=== PATIENT | female | born 1955 | race African-American/Black ===

== ENCOUNTER → 2017-06-26 | Day surgery (SDC) | payer MEDICARE ==
[2017-06-20 16:07] LABS: BASOPHILS % 0.4 % (0.0-1.0); EOSINOPHILS # (AUTO) 0.1 (0.0-0.4); EOSINOPHILS % 1.1 % (0.0-6.0); HEMATOCRIT 37.3 % (34.2-44.1); HEMOGLOBIN 11.6 g/dL (12.0-16.0); LYMPHOCYTES # (AUTO) 2.6 (1.0-3.2); LYMPHOCYTES % 37.3 % (18.0-39.1); MEAN CORPUSCULAR HEMOGLOBIN 23.6 pg (28-32); MEAN CORPUSCULAR HGB CONC 31.1 g/dL (31-35); MEAN CORPUSCULAR VOLUME 75.8 fL (81-99); MONOCYTES # (AUTO) 0.5 (0.2-0.8); NEUTROPHILS # (AUTO) 3.8 (2.1-6.9); NEUTROPHILS % 53.9 % (38.7-80.0); PLATELET COUNT 257 x10e3/uL (140-360); RED BLOOD COUNT 4.92 x10e6/uL (3.6-5.1); RED CELL DISTRIBUTION WIDTH 15.6 % (11.7-14.4)
[~2017-06-26] MED LIST: ACETAMINOPHEN 1000 MG/100 ML IV ONE; ACETAMINOPHEN/CODEINE 300MG - 30MG TAB ONE; CEFAZOLIN SOD 1 GM VIAL ONE; FENTANYL CITRATE/PF 100MCG/2 ML INJ ONE; GLIMEPIRIDE2 MG PO; HYDROCHLOROTHIA25 MG PO; INSULIN SQ; ISOSORBIDE MONO30 MG PO; LIDOCAINE HCL 2% LOCAL INJ 5 ML SDV VIAL INJ ONE; METOPROLOL SUCC50 MG PO; MIDAZOLAM HCL 2 MG/2 ML VIAL ONE; NIFEDIPINE ER30 M1 PO; ONDANSETRON HCL INJ 2 MG/ML VIAL ONE; PANTOPRAZOLE SO40 MG PO; PROPOFOL IV EMULSION 10 MG/ML 50 ML VIAL ONE; SEVOFLURANE INHAL SOLN 250 ML PEN BTL ONE
--- OUTSIDE RECORDS SUMMARY | 2017-06-26 06:02 | XMS REPORT ---
[facility] Phone Unavailable Care Team Providers Care Baby Attendant Name Role Phone Unavailable Unavailable Problems This patient has no known problems. Allergies, Adverse Reactions, Alerts This patient has no known allergies or adverse reactions. Medications This patient has no known medications. Encounters Start Date/Time End Date/Time Encounter Type Admission Type Attending [facility] Care Department Encounter ID 2017-03-12 00:00:00 2017-03-12 00:00:00 Outpatient [facility] [id number] 2017-01-30 00:00:00 2017-01-30 00:00:00 Outpatient [facility] [id number] 2017-01-09 00:00:00 2017-01-09 00:00:00 Outpatient [facility] [id number] 2017-01-02 13:02:36 2017-01-02 13:02:36 Outpatient [facility] [id number] 2016-12-22 00:00:00 2016-12-22 00:00:00 Outpatient [facility] [id number] 2016-12-21 09:48:44 2016-12-21 09:48:44 Outpatient [facility] [id number] 2016-12-07 00:00:00 2016-12-07 00:00:00 Outpatient [facility] [id number] 2016-11-29 14:11:11 2016-11-29 14:11:11 Outpatient [facility] [id number] 2016-11-24 00:00:00 2016-11-24 00:00:00 Outpatient [facility] [id number] 2016-11-21 12:48:50 2016-11-21 12:48:50 Outpatient [facility] [id number] 2016-11-20 11:26:34 2016-11-20 11:26:34 Outpatient [facility] [id number] 2016-11-20 10:50:19 2016-11-20 10:50:19 Outpatient [facility] [id number] 2016-11-20 00:00:00 2016-11-20 00:00:00 Outpatient [facility] [id number] 2016-11-16 10:48:30 2016-11-16 10:48:30 Outpatient [facility] [id number] 2016-11-07 08:04:55 2016-11-07 08:04:55 Outpatient [facility] [id number] 2016-11-06 08:00:00 2016-11-06 08:00:00 Outpatient [facility] [id number] 2016-11-06 00:00:00 2016-11-06 00:00:00 Outpatient [facility] [id number] 2016-11-06 00:00:00 2016-11-06 00:00:00 Outpatient [facility] [id number] 2016-11-03 00:00:00 2016-11-03 00:00:00 Outpatient [facility] [id number] 2016-10-27 12:57:26 2016-10-27 12:57:26 Outpatient [facility] [id number] 2016-10-23 14:45:54 2016-10-23 14:45:54 Outpatient [facility] [id number] 2016-10-17 00:00:00 2016-10-17 00:00:00 Outpatient [facility] [id number] 2016-10-05 11:02:14 2016-10-05 11:02:14 Outpatient [facility] [id number] 2016-09-26 08:03:38 2016-09-26 08:03:38 Outpatient [facility] [id number] 2016-09-25 06:24:00 2016-09-25 06:24:00 Outpatient [facility] [id number] 2016-09-23 00:00:00 2016-09-23 00:00:00 Outpatient [facility] [id number] 2016-09-21 09:27:17 2016-09-21 09:27:17 Outpatient [facility] [id number] 2016-09-21 08:59:07 2016-09-21 08:59:07 Outpatient [facility] [id number] 2016-09-21 08:03:42 2016-09-21 08:03:42 Outpatient [facility] [id number] 2016-09-20 10:48:04 2016-09-20 10:48:04 Outpatient [facility] [id number] 2016-08-25 15:35:03 2016-08-25 15:35:03 Outpatient [facility] [id number]
--- NOTE | 2017-06-26 09:24 | Operative Report ---
DATE OF PROCEDURE: June 26, 2017 [employer] COM[employer]ITE TECHNICIAN: Edwar Flower PA-C The patient was brought to the operating room for induction of anesthesia. Throughout this case, my PA's assistance was necessary for retraction of soft tissue and positioning of the extremity. This allows for efficient and technically successful execution of the operation and is considered medically necessary. PREOPERATIVE DIAGNOSIS: Right carpal tunnel syndrome. POSTOPERATIVE DIAGNOSIS: Right carpal tunnel syndrome. PROCEDURE: Right endoscopic carpal tunnel release. INDICATIONS: The patient is a 62-year-old lady who has clinic signs and symptoms consistent with right carpal tunnel syndrome. She has failed conservative management and would like to proceed with definitive intervention. The risks and benefits of an endoscopic versus open carpal tunnel release have been explained. She states she understands and wishes to proceed. PROCEDURE: The patient was brought to the operating room. She was placed under general anesthetic. Prophylactic antibiotics were given in the holding area. The right upper extremity was prepped and draped in a sterile manner. A well-padded tourniquet was placed on the upper arm and inflated to 250 mmHg. An operative time out was performed. A 1-cm incision was made over the flexion crease of the wrist. The palmaris longus was retracted to the radial side of the wound. The flexor retinaculum was elevated and incised with a pair of sharp tenotomy scissors. An elevator was used to tease the tenosynovium off the undersurface of the transverse carpal ligament. Dilators were placed, and the hook of the hamate was palpated. The [employer] endoscope was then placed into the carpal tunnel. The undersurface of the ligament was cleanly visualized without evidence of soft tissue interposition. The knife was deployed, and the ligament was cut from distal to proximal. Full-thickness cut was noted. The proximal retinaculum was then incised under direct visualization using a pair of blunt Metzenbaum scissors. The wound was irrigated and closed with 2 interrupted 4-0 nylon stitches. A sterile bandage was applied, and the patient was extubated. The patient was transferred to the recovery room in stable condition. Blood loss was less than 5 mL, and at the end of the procedure needle and sponge counts were correct. Job#: [id number]
== END | disposition home or self-care (01) ==
LOC: OR 05:59
PROVIDERS: ATTEND Specialist
DX: G56.01 Carpal tunnel syndrome, right upper limb (principal); E11.9 Type 2 diabetes mellitus without complications; I10 Essential (primary) hypertension; E66.01 Morbid (severe) obesity due to excess calories; K21.9 Gastro-esophageal reflux disease without esophagitis; Z01.810 Encounter for preprocedural cardiovascular examination; Z01.812 Encounter for preprocedural laboratory examination; Z79.82 Long term (current) use of aspirin; Z79.4 Long term (current) use of insulin; Z68.41 Body mass index [BMI] 40.0-44.9, adult; Z86.73 Personal history of transient ischemic attack (TIA), and cerebral infarction without residual deficits
CPT/HCPCS: 29848; 36415 ×2; 82948; 85025; 93005; J0690; J2001; J2250; J2405